=== PATIENT | female | born 1995 | race Two or more races ===

== ENCOUNTER 2020-09-26 06:57 | Inpatient (IN) | payer BC ==
[2020-09-26] MEDS ORDERED: Nalbuphine 10 MG/1 ML Vial IVPUSH PRN (08:20)
[2020-09-26] MEDS ORDERED: Lidocaine 1% 50 ML MDV INJECT ONE (08:20)
[2020-09-26] MEDS ORDERED: Ampicillin 2 GM in Sodium Chloride 0.9% 100 ML IV ONE (08:20)
[2020-09-26] MEDS ORDERED: Ondansetron 4 MG/2 ML SDV IVPUSH PRN (08:20)
[2020-09-26] MEDS ORDERED: Sodium Chloride 0.9% 10 ML Syringe FLUSH PRN (08:20)
[2020-09-26] MEDS ORDERED: Calcium Carbonate 500 MG Tab.Chew PO PRN (08:20)
[2020-09-26] MEDS ORDERED: Lactated Ringers 1,000 ML IV SCH (08:30)
[2020-09-26] MEDS ORDERED: Oxytocin/Lactated Ringers 10 UNIT/1,000 ML BAG IV SCH ×2 (08:30)
--- NOTE | 2020-09-26 10:02 | PCM.LDHP ---
L&D History of Present Illness - General Date of Service: 09/26/20 Admit Problem/Dx: Patient Status Order with Admit Dx/Problem 09/26/20 08:20 Patient Status [ADT] Routine Admission Diagnosis/Problem Admission Diagnosis/Problem 09/26/20 10:02 Sonam is a 25-year-old 2 para 1-0-0-1 female admitted on the a.m. of 09/26/2020 at 40-1/7 weeks gestational age with an ZAK of 09/25/2020 for induction of labor. Source of Information: Patient, Other History Limitations: Reports: No Limitations - History of Present Illness Introduction:: Sonam is a 25-year-old 2 para 1-0-0-1 female admitted on the a.m. of 09/26/2020 at 40-1/7 weeks gestational age with an ZAK of 09/25/2020 for induction of labor. Process and procedure of induction of labor, its risks, benefits, limitations and follow-up were discussed in detail with the patient. She appears understand and wishes to proceed. 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 Patient had menarche at approximately age 14. Cycles every 30 days. Not using any control at the time of conception. Her ZAK of 09/25/2020 was set by her certain last menstrual period starting 12/20/2019 and supported by at least 3 ultrasounds during the course of her . She has previous history of obstetric delivery: 1. Female born 10/11/2014 at 39-5/7 weeks gestational age after 25 hours of labor. 8 pound 9 ounce baby born via . Epidural anesthesia. [facility] in [place]. Daughter's name is Blanka. course: Sonma was first seen on 02/23/2020 at 10-3/7 weeks gestational age. She is seen on a very regular basis throughout the . Her weight increased from 259 pounds to 310.6 pounds for a 51.6 pound increase. Her fundal height growth has been well ahead of schedule. Last ultrasound performed on 08/23/2020 showed baby at 7 pounds 1 ounce. Group B strep screen positive. Rubella titer equivocalrecommend MMR prior to discharge after delivery. She plans to breast-feed. She had a positive confirmed drug screen for THC back in March 2020. Laboratory testing shows blood to be O+ with a negative antibody screen. First hemoglobin is 14.3 g/dL and platelets are 238,000. Her rubella titer shows equivocal results. RPR is nonreactive. Group B strep was noted in patient's initial urine culture. Hepatitis B surface antigen and HIV assays were both negative. Immediate, gonorrhea, hepatitis C virus antibody and hepatitis C virus RNA all negative. Second trimester labs showed a hemoglobin of 11.6 g/dL with platelets at 217,000. Her 1 hour GTT was normal at 119. Group B strep by urine culture at beginning was positive. Allergies: Sulfa drugs which cause rash and hives. Medications: 1. vitamins 1 daily. Past medical history: 1. x1. 2. Obesity 3. PCOS Family history: Patient mother is alive. Father is alive and healthy. Maternal grandmother is secondary stroke in her late 50s. Paternal grandmother is healthy, type 2 diabetes and asthma. Paternal grandfather is alive with type 2 diabetes. Paternal grandmother is alive with type 2 diabetes. 2 sisters are healthy. There there is no family history for bleeding disorders, blood clotting service, anesthesia or or problems. Social history: Patient is . is Edgardo Connor. She lives in [place]. She works at [employer] there. She does not use any significance and alcohol, drugs or tobacco. She claims /[place] as her heritage. Review of systems: In general patient has no complaints. She has had some contractions since last evaluation clinic on 09/23/2020. Skin: Negative Lungs: No infectious symptoms or shortness of breath Cardiovascular: No chest pain or exercise intolerance Breasts: No lumps, changes in size, pain, dimpling, discharge or axillary or supraclavicular concerns. GI: Negative : Changes consistent with . Musculoskeletal: Negative Neurological: Negative Physical exam: In general the patient is well-developed, well-nourished, pleasant female of stated age in no acute distress. Patient is morbidly obese with last weight in clinic at 310.6 pounds. Height is 5 feet 7. Prepregnancy body mass index is 3 4.5. Skin is warm dry without lesions. HEENT, neck and back within normal limits. Lungs are clear with good breath sounds in all lung cordova. Cardiovascular exam shows regular and rhythm without murmurs. Breast exam done at first visit found to be normal is not repeated at this time. Patient plans to breast-feed. Abdomen is gravid with fundal height at 49 cm on last evaluation. Genital exam per digital evaluation shows 3+ centimeters, 80% effaced, very soft, -3, mid position, cephalic presentation. Extremities and neurological exam are grossly within normal limits. - Related Data Allergies/Adverse Reactions: Allergies Allergy/AdvReac Type Severity Reaction Status Date / Time Sulfa (Sulfonamide Allergy Hives Verified 09/26/20 08:25 Antibiotics) Home Medications: Home Meds Ferrous Sulfate [Iron] 325 mg PO DAILY 09/26/20 [History] Pnv No.95/Ferrous Fum/Folic AC [ Multivitamin Tablet] 1 tab PO DAILY 09/26/20 [History] Past Medical History - Past Health History Medical/Surgical History: Denies Medical/Surgical History DAMAGE ADJUSTER History: Reports: Social & Family History - Family History Family Medical History: No Pertinent Family History H&P Review of Systems - Review of Systems: Review Of Systems: See Below L&D Exam - Exam Exam: See Below - Vital Signs Vital Signs: Last Vital Signs Temp 36.9 C 09/26/20 08:45 Pulse 78 09/26/20 08:45 Resp 14 09/26/20 08:45 BP 134/68 09/26/20 08:45 Pulse Ox Weight: 141.974 kg - Patient Data Lab Results Last 24 hrs: Laboratory Results - last 24 hr 09/26/20 09/26/20 Range/Units 08:00 08:50 WBC 13.33 H (3.98-10.04) K/mm3 RBC 4.44 (3.98-5.22) M/mm3 Hgb 13.3 (11.2-15.7) gm/dl Hct 39.9 (34.1-44.9) % MCV 89.9 (79.4-94.8) fl MCH 30.0 (25.6-32.2) pg MCHC 33.3 (32.2-35.5) g/dl RDW Std Deviation 56.0 H (36.4-46.3) fL Plt Count 176 L (182-369) K/mm3 MPV 12.1 (9.4-12.3) fl Neut % (Auto) 79.7 H (34.0-71.1) % Lymph % (Auto) 11.4 L (19.3-51.7) % Bryan % (Auto) 7.7 (4.7-12.5) % Eos % (Auto) 0.5 L (0.7-5.8) Baso % (Auto) 0.2 (0.1-1.2) % Neut # (Auto) 10.64 H (1.56-6.13) K/mm3 Lymph # (Auto) 1.52 (1.18-3.74) K/mm3 Bryan # (Auto) 1.02 H (0.24-0.36) K/mm3 Eos # (Auto) 0.06 (0.04-0.36) K/mm3 Baso # (Auto) 0.03 (0.01-0.08) K/mm3 SARS-CoV-2 RNA (GORAN) Negative (NEGATIVE) Result Diagrams: 09/26/20 08:50 - Problem List (1) 40 weeks gestation of SNOMED Code(s): 26716925 ICD Code: Z3A.40 - 40 WEEKS GESTATION OF Status: Acute Current Visit: Yes (2) Obesity SNOMED Code(s): 316456712, 095238682 ICD Code: E66.9 - OBESITY, UNSPECIFIED Status: Acute Current Visit: Yes Qualifiers: Body mass index: BMI 45.0-49.9 Problem List Initiated/Reviewed/Updated: Yes Orders Last 24hrs: Active Orders 24 hr Category Date Time Status Patient Status [ADT] Routine ADT 09/26/20 08:20 Active Activity as Tolerated [RC] PFP Care 09/26/20 08:20 Active Communication Order [RC] ASDIRECTED Care 09/26/20 08:20 Active Heart Tones [RC] ASDIRECTED Care 09/26/20 08:20 Active Notify Provider [RC] PFP Care 09/26/20 08:20 Active Notify Provider [RC] PRN Care 09/26/20 08:20 Active Peripheral IV Care [RC] . DIRECTED Care 09/26/20 08:20 Active Pump Management, Intrathecal [RC] ASDIRECTED Care 09/26/20 08:21 Active Urinary Catheter Assessment [RC] ASDIRECTED Care 09/26/20 08:20 Active Vital Signs [RC] PER UNIT ROUTINE Care 09/26/20 08:20 Active Regular Diet [DIET] Diet 09/26/20 Lunch Active RAPID PLASMA REAGIN,RPR [CHEM] Routine Lab 09/26/20 08:50 Received Ampicillin 1 gm Med 09/26/20 12:30 Active Sodium Chloride 0.9% [Normal Saline] 100 ml IV Q4H Calcium Carbonate [Tums] Med 09/26/20 08:20 Active 1,000 mg PO Q2H PRN Lactated Ringers [Ringers, Lactated] 1,000 ml Med 09/26/20 08:30 Active IV ASDIRECTED Nalbuphine [Nubain] Med 09/26/20 08:20 Active 10 mg IVPUSH Q2H PRN Ondansetron [Zofran] Med 09/26/20 08:20 Active 4 mg IVPUSH Q4H PRN Oxytocin/Lactated Ringers [Pitocin in LR 10 Units/1,000 Med 09/26/20 08:30 Active ML] 10 unit in 1,000 ml IV .CONTINUOUS Oxytocin/Lactated Ringers [Pitocin in LR 10 Units/1,000 Med 09/26/20 08:30 Active ML] 10 unit in 1,000 ml IV TITRATE Sodium Chloride 0.9% [Saline Flush] Med 09/26/20 08:20 Active 10 ml FLUSH ASDIRECTED PRN Electronic Heart Tones Ext w TOCO [WOMSER] Oth 09/26/20 08:20 Ordered Routine Electronic Heart Tones Internal [WOMSER] Per Unit Oth 09/26/20 08:20 Ordered Routine Peripheral IV Insertion Adult [OM.PC] Routine Oth 09/26/20 08:20 Ordered Resuscitation Status Routine Resus Stat 09/26/20 08:20 Ordered Medication Orders Calcium Carbonate/Glycine (Calcium Carbonate 500 Mg Tab.Chew) 1,000 mg PO Q2H PRN PRN Reason: Indigestion Ampicillin Sodium 1 gm/ Sodium (Chloride) 100 mls @ 200 mls/hr IV Q4H SANJANA Lactated Ringer's (Ringers, Lactated) 1,000 mls @ 100 mls/hr IV ASDIRECTED SANJANA Last Admin: 09/26/20 08:42 Dose: 100 mls/hr Documented by: [email or web address] Oxytocin/Lactated Ringer's (Pitocin In Lr 10 Units/1,000 Ml) 10 unit in 1,000 mls @ 12 mls/hr IV TITRATE SANJANA; Protocol Oxytocin/Lactated Ringer's (Pitocin In Lr 10 Units/1,000 Ml) 10 unit in 1,000 mls @ 100 mls/hr IV .CONTINUOUS SANJANA; Protocol Nalbuphine HCl (Nalbuphine 10 Mg/1 Ml Vial) 10 mg IVPUSH Q2H PRN PRN Reason: Pain Ondansetron HCl (Ondansetron 4 Mg/2 Ml Sdv) 4 mg IVPUSH Q4H PRN PRN Reason: Nausea/Vomiting Sodium Chloride (Sodium Chloride 0.9% 10 Ml Syringe) 10 ml FLUSH ASDIRECTED PRN PRN Reason: Keep Vein Open Assessment/Plan Comment:: 1. Sonam is a 25-year-old 2 para 1-0-0-1 female admitted on the a.m. of 09/26/2020 at 40-1/7 weeks gestational age with an ZAK of 09/25/2020 for induction of labor. 2. Patient plans to breast-feed 3. Desires natural labor 4. Rubella titer is equivocalpatient candidate for MMR prior to discharge. 5. History of positive THC drug screen early in -negative afterwards. 6. Group B strep positive status 7. Risk factors for the include group B strep positive status, obesit y, distance from the hospital, PCOS. Plan: 1. Pitocin induction with AROM augmentation when possible 2. Group B strep prophylaxis with ampicillin per protocol 3. Natural labor per patient desire. Patient is aware of other labor analgesia modalities available. 4. MMR prior to discharge after delivery. 5. CBC, COVID-19 testing, RPR upon admission 6. Anticipate vaginal delivery.
[2020-09-26] MEDS: Ampicillin 1 GM in Sodium Chloride 0.9% 100 ML IV SCH ×2 (11:59→16:59)
--- NOTE | 2020-09-26 20:13 | PCM.SN.2 ---
- Free Text/Narrative Note: Delivery note: Stage I: Sonam is a 25-year-old 2 para 1-0-0-1 female admitted on the a.m. of 09/26/2020 at 40-1/7 weeks gestational age with an ZAK of 09/25/2020 for induction of labor. Process and procedure of induction of labor, its risks, benefits, limitations and follow-up were discussed in detail with the patient. She underwent Pitocin induction of labor with AROM with resultant bloody fluid. She progressed steadily and consistently throughout the day. She continued to have small amounts of bloody amniotic fluid vaginally. heart tones generally looked reassuring throughout the day. Occasional periods of decreased variability did occur. No significant decelerations were noted that required any intervention. Patient did not use any pain other than 1 dose of Nubain. She obtained complete cervical dilation by approximately 1930 hrs. Stage II: The patient delivered a viable, june, male named Enrike Win at 1939 hrs. on 09/26/2020. Male infant weighed 4300 g (9 lbs. 7.7 oz.), had Apgars of 4 and 9 and a length of 22.0 in. Baby delivered in a occiput anterior position. The shoulders were delivered with gentle downward and upward traction. No nuchal cord was noted. View then completely delivered and was placed on mom's abdomen on a dry blanket which was used to wipe the baby. Umbilical cord was allowed to pulsate for approximately 1 min but because of the amount of bleeding decision was made to take the baby to the warmer. The cord was clamped x2 and then cut by the baby's father. Cord blood was obtained. Umbilical cord had 3 vessels. A moderate amount of blood up to 200 cc followed the baby out. Upon delivery the Pitocin solution rate was increased to 500 cc an hour to facilitate increase in tone and decrease likelihood of bleeding. Stage III: The placenta delivered in a Eason fashion. There is some concern about membranes as there seem to be less than normal amount of membranes. Exam did not reveal any membranes on bimanual exam. The placenta contracted well and minimal bleeding was encountered. No lacerations were noted. No suturing was required. Estimated blood loss was approximately 500 cc total with amniotic fluid included. Patient plans to breast-feed. Condition: Good.
[2020-09-26] MEDS ORDERED: Docusate Sodium 100 MG Cap PO PRN (21:38)
[2020-09-26] MEDS ORDERED: Acetaminophen 325 MG Tab PO PRN (21:38)
[2020-09-26] MEDS ORDERED: Benzocaine/Menthol 20%-0.5% Spray 56 GM Canister TOP PRN (21:38)
[2020-09-26] MEDS ORDERED: Witch Hazel Medicated Pads 40/Jar TOP PRN (21:38)
[2020-09-26] MEDS ORDERED: Misoprostol 200 MCG Tab ONE (21:40)
[2020-09-26] MEDS: Misoprostol 200 MCG Tab PO SCH (21:40)
[2020-09-26] MEDS: Ibuprofen 600 MG Tab PO PRN (22:48)
[2020-09-27] MEDS: Misoprostol 200 MCG Tab PO SCH (00:41)
[2020-09-27] MEDS: Ampicillin 1 GM in Sodium Chloride 0.9% 100 ML IV SCH (01:58)
[2020-09-27] MEDS: Ibuprofen 600 MG Tab PO PRN ×4 (04:04→19:34)
[2020-09-27] MEDS: Prenatal Multivitamin with Calcium/Folic Acid/Iron Tab PO SCH (08:35)
--- NOTE | 2020-09-27 12:15 | PCM.SN.2 ---
- Free Text/Narrative Note: note: Patient is doing well in the period. Minimal lochia, voiding well, ambulated without problems. Nursing without concerns. She passed some membranes this morning. And has had minimal bleeding since that time. Physically she is doing very well. She is ambulating well, has no concerns. Patient is afebrile, vital signs are stable Abdomen is flat, soft, uterus is below the umbilicus and is firm and nontender. Legs are nontender. Assessment: recovery going well. Plan: Routine care. Patient be discharged home within the next 24-48 hours.
[2020-09-27] MEDS ORDERED: Measles, Mumps & Rubella Vaccine 0.5 ML SDV SUBCUT ONE (14:36)
[2020-09-28 03:34] VITALS: BP 118/59; PULSE 86
--- NOTE | 2020-09-28 04:01 | PCM.DCSUM1 ---
Discharge Summary - Hospital Course Free Text/Narrative:: Stage I: Sonam is a 25-year-old 2 para 1-0-0-1 female admitted on the a.m. of 09/26/2020 at 40-1/7 weeks gestational age with an ZAK of 09/25/2020 for induction of labor. Process and procedure of induction of labor, its risks, benefits, limitations and follow-up were discussed in detail with the patient. She underwent Pitocin induction of labor with AROM with resultant bloody fluid. She progressed steadily and consistently throughout the day. She continued to have small amounts of bloody amniotic fluid vaginally. heart tones generally looked reassuring throughout the day. Occasional periods of decreased variability did occur. No significant decelerations were noted that required any intervention. Patient did not use any pain other than 1 dose of Nubain. She obtained complete cervical dilation by approximately 1930 hrs. Stage II: The patient delivered a viable, june, male named Enrike Win at 1939 hrs. on 09/26/2020. Male infant weighed 4300 g (9 lbs. 7.7 oz.), had Apgars of 4 and 9 and a length of 22.0 in. Baby delivered in a occiput anterior position. The shoulders were delivered with gentle downward and upward traction. No nuchal cord was noted. View then completely delivered and was placed on mom's abdomen on a dry blanket which was used to wipe the baby. Umbilical cord was allowed to pulsate for approximately 1 min but because of the amount of bleeding decision was made to take the baby to the warmer. The cord was clamped x2 and then cut by the baby's father. Cord blood was obtained. Umbilical cord had 3 vessels. A moderate amount of blood up to 200 cc followed the baby out. Upon delivery the Pitocin solution rate was increased to 500 cc an hour to facilitate increase in tone and decrease likelihood of bleeding. Stage III: The placenta delivered in a Eason fashion. There is some concern about membranes as there seem to be less than normal amount of membranes. Exam did not reveal any membranes on bimanual exam. The placenta contracted well and minimal bleeding was encountered. No lacerations were noted. No suturing was required. Estimated blood loss was approximately 500 cc total with amniotic fluid included. Patient plans to breast-feed. patient is done very well. On day #1 she passed a small amount of blood but membranes which when evaluated appeared to be consistent with was felt to be entire remaining membranes and utero. She has not had any significant bleeding since that time. She has been ambulating well, voiding without problems, is nursing without concerns. She is desiring discharge home. Condition: Good. Diagnosis: Stroke: No - Discharge Data Discharge Date: 09/28/20 Discharge Disposition: Home, Self-Care 01 Condition: Good - Referral to Home Health Primary Care Physician: Jorge Luis Issa MD - Discharge Diagnosis/Problem(s) (1) 40 weeks gestation of SNOMED Code(s): 52772388 ICD Code: Z3A.40 - 40 WEEKS GESTATION OF Status: Acute Current Visit: Yes (2) Obesity SNOMED Code(s): 307985105, 097069297 ICD Code: E66.9 - OBESITY, UNSPECIFIED Status: Acute Current Visit: Yes Qualifiers: Body mass index: BMI 45.0-49.9 - Patient Instructions Diet: Regular Diet as Tolerated (Nursing diet with increased calories and calcium as recommended) Activity: As Tolerated (No intercourse or tampons until bleeding resolves) Driving: May Drive Today Showering/Bathing: May Shower (May take a bath) Notify Provider of: Fever, Increased Pain, Swelling and Redness, Nausea and/or Vomiting - Discharge Plan Home Medications: Home Meds Ferrous Sulfate [Iron] 325 mg PO DAILY 09/26/20 [History] Pnv No.95/Ferrous Fum/Folic AC [ Multivitamin Tablet] 1 tab PO DAILY 09/26/20 [History] Acetaminophen [Tylenol] 650 mg PO Q4H PRN tablet 09/28/20 [Rx] Ibuprofen [Motrin] 600 mg PO Q4H PRN tablet 09/28/20 [Rx] Referrals: Jorge Luis Issa MD [Primary Care Provider] - (Return to [email or web address] to [address] [place] [address] in [place], [place].) - Discharge Summary/Plan Comment DC Time >30 min.: No Discharge Summary/Plan Comment: Discharge instructions: 1. Discharge home 2. Diet, activity and follow-up discussed with patient. Recommend nursing diet with increased calories and calcium. 3. Precautions given concern increased pain, bleeding, temperature, signs/symp toms of DVT/PE. 4. Medications per home medication was printed, discussed with and given to the patient. 5. Return to clinic-Dr. Issa-at [place], [place] in 2 weeks. Diagnosis: Term -delivered Condition: Good - Patient Data Vitals - Most Recent: Last Vital Signs Temp 36.7 C 09/27/20 19:37 Pulse 86 09/28/20 02:28 Resp 16 09/28/20 02:28 BP 118/59 L 09/28/20 02:28 Pulse Ox 100 09/28/20 02:28 Weight - Most Recent: 141.974 kg Med Orders - Current: Current Medications Acetaminophen (Acetaminophen 325 Mg Tab) 650 mg PO Q4H PRN PRN Reason: mild pain or fever Benzocaine/Menthol (Benzocaine/Menthol 20%-0.5% Pierson 56 Gm Canister) 0 gm TOP ASDIRECTED PRN PRN Reason: Perineal Comfort Measure Last Admin: 09/26/20 22:49 Dose: 1 canister Documented by: Docusate Sodium (Docusate Sodium 100 Mg Cap) 100 mg PO BID PRN PRN Reason: Constipation Ibuprofen (Ibuprofen 600 Mg Tab) 600 mg PO Q4H PRN PRN Reason: Mild pain or fever Last Admin: 09/27/20 19:34 Dose: 600 mg Documented by: Prenat Multivit/Lea/Iron/Folic Ac ( Multivitamin With Calcium/Folic Acid/Iron Tab) 1 each PO DAILY [facility] Last Admin: 09/27/20 08:35 Dose: 1 each Documented by: Traci Hill (Traci Hill Medicated Pads 40/Jar) 1 pad TOP ASDIRECTED PRN PRN Reason: Perineal Comfort Measure Last Admin: 09/26/20 22:48 Dose: 1 container Documented by: Discontinued Medications Calcium Carbonate/Glycine (Calcium Carbonate 500 Mg Tab.Chew) 1,000 mg PO Q2H PRN PRN Reason: Indigestion Ampicillin Sodium 2 gm/ Sodium (Chloride) 100 mls @ 200 mls/hr IV ONETIME ONE Stop: 09/26/20 08:49 Last Admin: 09/26/20 08:42 Dose: 200 mls/hr Documented by: Ampicillin Sodium 1 gm/ Sodium (Chloride) 100 mls @ 200 mls/hr IV Q4H [facility] Last Admin: 09/27/20 01:58 Dose: Not Given Documented by: Lactated Ringer's (Ringers, Lactated) 1,000 mls @ 100 mls/hr IV ASDIRECTED SANJANA Last Admin: 09/26/20 08:42 Dose: 100 mls/hr Documented by: Oxytocin/Lactated Ringer's (Pitocin In Lr 10 Units/1,000 Ml) 10 unit in 1,000 mls @ 12 mls/hr IV TITRATE SANJANA; Protocol Last Titration: 09/26/20 16:04 Dose: 2 munits/min, 12 mls/hr Documented by: Oxytocin/Lactated Ringer's (Pitocin In Lr 10 Units/1,000 Ml) 10 unit in 1,000 mls @ 100 mls/hr IV .CONTINUOUS SANJANA; Protocol Last Admin: 09/26/20 20:45 Dose: 500 mls/hr Documented by: Lidocaine HCl (Lidocaine 1% 50 Ml Mdv) 50 ml INJECT ONETIME ONE Stop: 09/26/20 08:21 Last Admin: 09/27/20 01:58 Dose: Not Given Documented by: Measles/Mumps/Rubella Vaccine Live (Measles, Mumps & Rubella Vaccine 0.5 Ml Sdv) 0.5 ml SUBCUT .ONCE ONE Stop: 09/27/20 14:37 Last Admin: 09/27/20 14:55 Dose: 0.5 ml Documented by: Misoprostol (Misoprostol 200 Mcg Tab) 600 mcg PO Q3H SANJANA Stop: 09/27/20 00:53 Last Admin: 09/27/20 00:41 Dose: 600 mcg Documented by: Misoprostol (Misoprostol 200 Mcg Tab) Confirm Administered Dose 200 mcg .ROUTE .STK-MED ONE Stop: 09/26/20 21:41 Last Admin: 09/26/20 22:47 Dose: Not Given Documented by: Nalbuphine HCl (Nalbuphine 10 Mg/1 Ml Vial) 10 mg IVPUSH Q2H PRN PRN Reason: Pain Last Admin: 09/26/20 16:55 Dose: 10 mg Documented by: Ondansetron HCl (Ondansetron 4 Mg/2 Ml Sdv) 4 mg IVPUSH Q4H PRN PRN Reason: Nausea/Vomiting Sodium Chloride (Sodium Chloride 0.9% 10 Ml Syringe) 10 ml FLUSH ASDIRECTED PRN PRN Reason: Keep Vein Open
[2020-09-28] MEDS: Ibuprofen 600 MG Tab PO PRN (12:51)
[2020-09-28] MEDS: Prenatal Multivitamin with Calcium/Folic Acid/Iron Tab PO SCH (12:51)
== END 2020-09-28 13:06 | disposition home or self-care (01) | DRG 560 ==
LOC: JD.OB 06:57 → OBSVTOIN 19:39 → JD.OB 20:00
PROVIDERS: ADMIT Obstetrics & Gynecology; ATTEND Obstetrics & Gynecology
PROC: 10E0XZZ Delivery of Products of Conception, External Approach (ICD-10-PCS; principal; 2020-09-26)
PROC: 10907ZC Drainage of Amniotic Fluid, Therapeutic from Products of Conception, Via Natural or Artificial Opening (ICD-10-PCS; 2020-09-26)
PROC: 3E033VJ Introduction of Other Hormone into Peripheral Vein, Percutaneous Approach (ICD-10-PCS; 2020-09-26)
PROC: 3E0234Z Introduction of Serum, Toxoid and Vaccine into Muscle, Percutaneous Approach (ICD-10-PCS; 2020-09-27)
DX: O48.0 Post-term pregnancy (principal); Z3A.40 40 weeks gestation of pregnancy; Z37.0 Single live birth; O99.214 Obesity complicating childbirth; Z20.822 Contact with and (suspected) exposure to COVID-19; Z23 Encounter for immunization
CPT/HCPCS: 36415; 59025; 59409; 80306; 85025; 86592; 90471; 90707; A9270-GY; J0290; J2300; J2590; J7120; U0002